=== PATIENT | female | born 1985 | race Two or more races ===

== ENCOUNTER 2020-08-07 09:34 | Outpatient (CLI) | payer OTHER | END 2020-08-07 09:47 | disposition home or self-care (01) | LOC: RX STUDY 09:34 | PROVIDERS: ATTEND Obstetrics & Gynecology Gynecology | DX: N70.03 Acute salpingitis and oophoritis (principal) ==

== ENCOUNTER 2023-08-18 09:22 | Outpatient (CLI) | payer OTHER | END 2023-08-18 09:30 | disposition home or self-care (01) | LOC: RX STUDY 09:22 | PROVIDERS: ATTEND Obstetrics & Gynecology | DX: N94.5 Secondary dysmenorrhea (principal); N80.311 Superficial endometriosis of the anterior cul-de-sac ==